=== PATIENT | female | born 1960 | race Caucasian/White ===

== ENCOUNTER 2016-12-13 17:52 | Emergency (ER) | payer OTHER ==
--- NOTE | ~2016-12-13 | EKG ---
PATIENT: KATEY DE SOUZA UNIT #: [id number] Ventricular Rate: 77 BPM Atrial Rate: 77 BPM P-R Interval: 152 ms QRS Duration: 66 ms Q-T Interval: 388 ms QTC Calculation(Bezet): 439 ms P [place]: 35 degrees Calculated R [place]: 26 degrees Calculated T [place]: 59 degrees Diagnosis Line: Normal sinus rhythm Diagnosis Line: Low voltage QRS Diagnosis Line: Borderline ECG Diagnosis Line: No previous ECGs available Diagnosis Line: Confirmed by ELIOT JENNINGS MD ([id number]) on Diagnosis Line: 12/18/2016 10:40:00 AM INTERPRETING MD: DICK LYN
--- NOTE | ~2016-12-13 | CR72 ---
[facility] A Service of [facility] RADIOLOGY TEXT RESULTS PATIENT: KATEY DE SOUZA LOCATION: SED : 56 UNIT #: [id number] AGE: [address]: Mark Molina MD SEX: F ORDER DR: [id number] [place] [id number] MR#: [id number] Acc #: [id number] NAME: KATEY DE SOUZA : 1960 SEX: F STUDY DATE/TIME: 12/13/2016 19:23 UNIT: SED ROOM: STUDY DESCRIPTION: CR Chest Single View Portable Attending Physician: Mark Molina M.D. Ordering Physician: Suresh Cruz M.D. Primary Care Physician: No Primary Care Physician MEDICAL IMAGING REPORT This report is preliminary unless electronic signature is present. EXAM Frontal chest, 12/13/2016. INDICATION 56-year-old female with chest pain, palpitations, fatigue since Wednesday. TECHNIQUE Frontal chest performed. COMPARISON No comparisons. FINDINGS Cardiac silhouette unremarkable. Vascularity normal. Lungs clear. No pneumothorax or effusion. IMPRESSION Negative frontal chest. We have no comparisons. Dictated by... Suresh Alba M.D. THIS IS AN ELECTRONICALLY VERIFIED REPORT Suresh Alba M.D. at 12/14/2016 10:49 PM GARO/zelda TD: 12/13/2016 23:58 JOB #: [id number] MEDICAL IMAGING REPORT [facility] A Service of [facility] RADIOLOGY TEXT RESULTS PATIENT: KATEY DE SOUZA LOCATION: SED : 56 UNIT #: [id number] AGE: [address]: Mark Molina MD SEX: F ORDER DR: Page 1 of 1
[2016-12-13] MEDS ORDERED: SYNTHROID (18:30)
[2016-12-13] MEDS ORDERED: ASMANEX220 MCG (18:32)
[2016-12-13] MEDS ORDERED: MULTIVITAMINS1 EAC3 (18:33)
[2016-12-13] MEDS ORDERED: CITRACAL200 M1 (18:33)
[2016-12-13] MEDS ORDERED: ZETIA (18:36)
[2016-12-13] MEDS ORDERED: ACID CONTROL150 M1 (18:36)
[2016-12-13] MEDS ORDERED: SINGULAIR (18:38)
[2016-12-13] MEDS ORDERED: XYZAL5 MG (18:39)
[2016-12-13 18:45] LABS: BASOPHIL% 0.6 % (0-2.5); EOSINOPHIL# 0.3 X10e3 (0-0.7); EOSINOPHIL% 4.1 % (0.0-7.0); HEMATOCRIT 39.3 % (35.0-45.0); HEMOGLOBIN 13.4 gm/dL (12.0-16.0); LYMPHOCYTE# 2.2 X10e3 (1.0-3.5); LYMPHOCYTE% 31.5 % (17.0-45.0); MEAN CELL VOLUME 90.8 FL (83-96); MEAN CORPUSCULAR HGB CONC 34.1 g/dL (30-36); MEAN PLATELET VOLUME 8.9 FL (6.5-11.5); MONOCYTE# 0.5 X10e3 (0-1.0); MONOCYTE% 6.7 % (3.0-12.0); NEUTROPHIL% 57.1 % (40-75); PLATELET COUNT 311 X10e3 (140-420); RED BLOOD COUNT 4.33 X10e (3.90-5.30)
[2016-12-13 18:48] LABS: DIFF IND NO
[2016-12-13 18:58] LABS: ALBUMIN SERUM 4.3 g/dL (3.5-5.0); BILIRUBIN,TOTAL 0.6 mg/dL (0.2-2.0); BUN/CREATININE RATIO 21.42; CREATININE SERUM 0.7 mg/dL (0.6-1.4); GLOM FILT RATE Estimated 95.5 mL/min (>60); POTASSIUM 3.5 mmol/L (3.5-5.1); PROTEIN TOTAL SERUM 7.1 g/dL (6.0-8.3)
[2016-12-13 19:01] LABS: POC - CKMB 1.6 ng/mL (0.0-7.9); POC - MYOGLOBIN 58.1 ng/mL (0.0-169.0); POC - TROPONIN <0.05 ng/mL (<=0.05)
[2016-12-13 19:39] LABS: URINE SOURCE CLEAN CATCH
[2016-12-13 19:41] LABS: URINE APPEARANCE CLEAR; URINE BILIRUBIN NEG (NEG); URINE BLOOD NEG (NEG); URINE COLOR YELLOW; URINE GLUCOSE NEG (NORM); URINE KETONE NEG (NEG); URINE LEUKOCYTE ESTERASE NEG (NEG); URINE NITRATE NEG (NEG); URINE PH 7.5 (5-8); URINE PROTEIN NEG (NEG); URINE UROBILINOGEN 0.2 MG/DL (NORM)
[2016-12-13 19:42] LABS: MICRO INDICATED? NO
== END 2016-12-13 20:10 | disposition home or self-care (01) ==
LOC: SED 17:52
PROVIDERS: Emergency Medicine
DX: R00.2 Palpitations (principal); K21.9 Gastro-esophageal reflux disease without esophagitis; F17.200 Nicotine dependence, unspecified, uncomplicated; Z88.0 Allergy status to penicillin; Z88.2 Allergy status to sulfonamides; Z91.012 Allergy to eggs; Z91.018 Allergy to other foods
CPT/HCPCS: 71010; 80053; 81003; 82553; 83874; 84484; 85025; 93005; 96374; 96375; 99285; J2405